=== PATIENT | male | born 1995 | race Caucasian/White ===

== ENCOUNTER 2023-01-21 10:54 | Emergency (ER) | payer OTHER ==
[~2023-01-21] VITALS: Ht 185.4 cm; Wt 108.4 kg
[2023-01-21 11:05] VITALS: BP 148/98
--- NOTE | 2023-01-21 11:12 | NUR ---
pt to chair a
[2023-01-21] MEDS ORDERED: BENZ-300 PO (11:31)
[2023-01-21 11:47] VITALS: BP 148/98
--- NOTE | 2023-01-21 11:47 | NUR ---
Patient discharged with v/s stable. Written and verbal after care instructions given and explained. Patient alert, oriented and verbalized understanding of instructions. Ambulatory with steady gait. All questions addressed prior to discharge. ID band removed. Patient advised to follow up with PMD. Rx of BENZOCAINE (SENT) given. Patient educated on indication of medication including possible reaction and side effects. Opportunity to ask questions provided and answered.
== END 2023-01-21 11:47 | disposition home or self-care (01) ==
LOC: MED 10:54
DX: J02.8 Acute pharyngitis due to other specified organisms (principal); B97.89 Other viral agents as the cause of diseases classified elsewhere; Z20.822 Contact with and (suspected) exposure to COVID-19; Z79.899 Other long term (current) drug therapy
CPT/HCPCS: 87081; 87491; 99283